=== PATIENT | female | born 1945 | race Caucasian/White ===

== ENCOUNTER 2017-06-23 06:52 | Day surgery (SDC) | payer OTHER, MEDICARE ==
[2017-06-19 19:36] VITALS: BMI 22.2
[2017-06-23] MEDS ORDERED: MIDAZOLAM HCL 2 MG/2 ML SINGLE DOSE VIAL ONE ×2 (09:23)
--- NOTE | 2017-06-23 10:25 | OP ---
Operative Note - Note: Operative Date: 06/23/17 Pre-Operative Diagnosis: RIGHT KIDNEY STONE Operation: Righr ESWL Findings: 6mm Lower pole kidney stone Post-Operative Diagnosis: Same as Pre-op Surgeon: Neftali Blum Anesthesia: Fractional
[2017-06-23] MEDS ORDERED: PROMETHAZINE HCL 25 MG/1 ML VIAL IVPUSH PRN (10:41)
[2017-06-23] MEDS ORDERED: ONDANSETRON 4 MG/2 ML VIAL IVPUSH PRN (10:41)
[2017-06-23] MEDS ORDERED: oxyCODONE HCL 5 MG TABLET PO PRN (10:41)
[2017-06-23] MEDS ORDERED: LACTATED RINGERS SOLUTION 1,000 ML IV SCH (10:45)
[2017-06-23 11:10] VITALS: TEMP 98
[2017-06-23 13:24] VITALS: BP 121/68; PULSE 81
--- NOTE | 2017-06-23 22:51 | OP ---
DATE OF OPERATION: 06/23/2017 PREOPERATIVE DIAGNOSIS: Right kidney stone. POSTOPERATIVE DIAGNOSIS: Right kidney stone. PROCEDURE: Right extracorporeal shock wave lithotripsy. ATTENDING: Neftali Toscano MD ANESTHESIA: Fractional. DESCRIPTION OF OPERATION: The patient was brought in the operating room, placed in supine on the operating table. Ultrasonography and fluoroscopy were performed. A 6-mm right-sided, lower-pole kidney stone was identified. Anesthesia was then administered, as well as antibiotics. Next, 3000 impulses at 17 joules of power were administered to the stone with excellent fragmentation noted. The patient tolerated the procedure very well. No complications were noted. The disposition of the patient was to the recovery room. Marie [id number]
== END 2017-06-23 12:40 | disposition home or self-care (01) ==
LOC: JASU-SURG 06:52
PROVIDERS: ATTEND Urology
PROC: 0TF3XZZ Fragmentation in Right Kidney Pelvis, External Approach (ICD-10-PCS; principal; 2017-06-23 08:45)
DX: N20.0 Calculus of kidney (principal)
CPT/HCPCS: 82962; 94760

== ENCOUNTER 2018-02-02 06:33 | Day surgery (SDC) | payer OTHER, MEDICARE ==
[2018-01-30 15:54] VITALS: BMI 22.4
[2018-02-02] MEDS ORDERED: MIDAZOLAM HCL 2 MG/2 ML SINGLE DOSE VIAL ONE (08:49)
--- NOTE | 2018-02-02 09:49 | OP ---
Operative Note - Note: Operative Date: 02/02/18 Pre-Operative Diagnosis: Left Renal stone Operation: Left ESWL Findings: 5 mm lower pole Left renal stone Post-Operative Diagnosis: Same as Pre-op Surgeon: Neftali Blum Anesthesia: Fractional Estimated Blood Loss (mls): 0
[2018-02-02 11:00] VITALS: PULSE 73
[2018-02-02 12:06] VITALS: BP 126/72; TEMP 97.9
--- NOTE | 2018-02-22 17:15 | OP ---
DATE OF OPERATION: 02/02/2018 PREOPERATIVE DIAGNOSIS: Left renal stone. POSTOPERATIVE DIAGNOSIS: Left renal stone. PROCEDURE: Left extracorporeal shock-wave lithotripsy. ATTENDING: Obie Kovacs MD ANESTHESIA: Fractional. OPERATION: Patient was brought in the operating room, placed in supine position on the operating room table. Ultrasonography and fluoroscopy were performed. A 5-mm left lower stone was identified. Anesthesia and preoperative antibiotics were then administered. Shock-wave lithotripsy was completed, with excellent fragmentation of the stone under real-time ultrasonography and fluoroscopy. There were no complications noted. The disposition of patient was to recovery room. OBIE KOVACS M.D. /[id number]
== END 2018-02-02 12:30 | disposition home or self-care (01) ==
LOC: JASU-SURG 06:33
PROVIDERS: ATTEND Urology
PROC: 0TF4XZZ Fragmentation in Left Kidney Pelvis, External Approach (ICD-10-PCS; principal; 2018-02-02 08:45)
DX: N20.0 Calculus of kidney (principal)
CPT/HCPCS: 82962